=== PATIENT | female | born 1960 | race Caucasian/White ===

== ENCOUNTER 2024-07-16 13:34 | Emergency (ER) | payer BC ==
[~2024-07-16] VITALS: Ht 142.2 cm; Wt 95.5 kg
[2024-07-16 14:09] LABS: BASO # 0.03 K/mm3 (0.02-0.10); EOS # 0.18 K/mm3 (0.04-0.40); EOS % 2.2 % (1.0-5.0); HEMATOCRIT 45.2 % (37.0-47.0); HEMOGLOBIN 14.9 g/dL (12.5-16.0); LYMPH# 2.17 K/mm3 (1.50-4.00); MEAN CELL VOLUME 86 fl (78-100); MEAN CORPUSCULAR HEMOGLOBIN 29 pg (27-31); MEAN CORPUSCULAR HGB CONC 33 g/dL (33-37); MEAN PLATELET VOLUME 8.8 fl (7.4-10.4); MONO # 0.72 K/mm3 (0.20-0.80); NEU # 5.14 K/mm3 (1.40-6.50); PLATELET COUNT 221 K/mm3 (130-400); RED BLOOD COUNT 5.23 M/mm3 (4.10-5.30); RED CELL DISTRIBUTION WIDTH 14.1 % (11.5-14.5); WHITE BLOOD COUNT 8.3 K/mm3 (4.8-10.8)
[2024-07-16] MEDS ORDERED: LISINOPRIL10 MG PO (14:13)
[2024-07-16] MEDS ORDERED: MOUNJARO10 MG/0.5 SQ (14:13)
[2024-07-16] MEDS ORDERED: DULOXETINE20 MG PO (14:13)
[2024-07-16] MEDS ORDERED: ALENDRONATE SOD70 MG PO (14:14)
[2024-07-16] MEDS ORDERED: NORVASC 10MG10 MG PO (14:14)
[2024-07-16] MEDS ORDERED: PANTOPRAZOLE SO40 MG PO (14:14)
[2024-07-16] MEDS ORDERED: FUROSEMIDE20 MG PO (14:14)
[2024-07-16 14:16] LABS: ALBUMIN 4.4 g/dL (3.4-4.8); SODIUM 140 mmol/L (136-145)
[2024-07-16 14:17] LABS: CALCIUM 9.4 mg/dL (8.3-10.5)
[2024-07-16 14:18] LABS: GLUCOSE 96 mg/dL (65-105)
[2024-07-16 14:20] LABS: CARBON DIOXIDE 22 mmol/L (23-31); TOTAL BILIRUBIN 0.5 mg/dL (0.2-1.2)
[2024-07-16 14:24] LABS: AST-SGOT 19 U/L (5-34)
[2024-07-16 14:25] LABS: ALT/SGPT 16 U/L (0-55)
[2024-07-16 14:29] LABS: D-DIMER 0.89 mg/L FEU (0.15-0.50)
[2024-07-16 14:31] LABS: TROPONIN-I < 0.030 ng/mL (0.00-0.033)
[2024-07-16] MEDS ORDERED: Iohexol 350 - 100 ML VIAL IV ONE (14:40)
[2024-07-16] MEDS ORDERED: ELIQUIS5 MG PO (15:14)
[2024-07-16] MEDS ORDERED: Apixaban 5 MG TABLET PO ONE (15:15)
[2024-07-16] MEDS ORDERED: Meclizine 12.5 MG TAB PO ONE (15:15)
[2024-07-16] MEDS ORDERED: MECLIZINE PO (15:18)
[2024-07-16 15:22] VITALS: BP 129/78
== END 2024-07-16 15:47 | disposition home or self-care (01) ==
LOC: ED 13:34
PROVIDERS: Family Medicine
DX: R42 Dizziness and giddiness (principal); E86.0 Dehydration; I45.10 Unspecified right bundle-branch block; R79.89 Other specified abnormal findings of blood chemistry
CPT/HCPCS: J7120; Q9967

== ENCOUNTER → 2024-09-24 | Outpatient (CLI) | payer MEDICARE, BC ==
[~2024-09-24] VITALS: Ht 149.9 cm; Wt 95.5 kg
[~2024-09-24] MED LIST: ALENDRONATE SOD70 MG PO; BACTRIM DS TAB1 EACH PO; DIFLUCAN100 M1 PO; DOXYCYCLINE HY100 M5 PO; DULOXETINE20 MG PO; ELIQUIS5 MG PO; FISH OIL 1,0001 EAC1 PO; FUROSEMIDE20 MG PO; LISINOPRIL10 MG PO; MAGNESIUM400 MG PO; MECLIZINE PO; MINOXIDIL 2.5 PO; MOUNJARO10 MG/0.5 SQ; NATURE'S BLEND1 TA6 PO; NORVASC 10MG10 MG PO; PANTOPRAZOLE SO40 MG PO; TYLENOL ARTHRI650 M2 PO; VIT D3-VIT K21 EACH PO
[2024-09-24 18:20] VITALS: BP 153/91
== END ==
LOC: WOUND 12:11
DX: L24.A9 Irritant contact dermatitis due friction or contact with other specified body fluids (principal); T81.31XA Disruption of external operation (surgical) wound, not elsewhere classified, initial encounter
CPT/HCPCS: 18895; A6021

== ENCOUNTER → 2024-10-01 | Outpatient (CLI) | payer MEDICARE, BC ==
[~2024-10-01] VITALS: Ht 149.9 cm; Wt 95.5 kg
[2024-10-01 14:30] VITALS: BP 150/85
--- NOTE | 2024-10-01 17:46 | NUR ---
PT HERE FOR WOUND CARE TO [facility]X S/P PILONIDAL CYSTECTOMY INCISION DEHISCENCE. PT STATES NOTED INCREASED DRAINAGE AND PAIN AT WOUND SITE THE LAST COUPLE DAYS. INCREASED REDNESS AND RED "RING" AROUND OUTER EDGES OF WOUND. DRAINAGE IS YELLOW AND PURULENT. CULTURE DONE AND PT WAS STARTED ON ANTIBIOTIC AND ALSO ON A MED FOR YEAST. PLAN IS TO POSSIBLY START ON WOUND VAC NEXT WEEK. PT IS AGREEABLE AND WANTS TO HEAL WOUND QUICKLY POSSIBLE WITHOUT HAVING TO MISS A LOT OF WORK. GENTLE DEBRIDEMENT DONE BY Ramo LENZ APRN. CLEANED WOUND WITH VASHE PRIOR TO CULTURE. IODOSORB GEL, AQUACEL EXTRA AND MEPILEX SACRAL DRESSING APPLIED. PT TO CHANGE DRESSING ON FRIDAY AND RETURN TO WOUND CLINIC ON FRIDAY. SUPPLIES SENT HOME WITH PATIENT. PT TOLERATED DRESSING CHANGE WITHOUT ANY PAIN OR PROBLEM.
--- NOTE | 2024-10-04 10:07 | NUR ---
WOUND CULTURE PRELIM GIVEN TO THANG LENZ APRN.
--- NOTE | 2024-10-04 11:13 | NUR ---
THANG LENZ APRN ORDERED NEW ANTIBIOTIC BACTRIM DS 1 TAB BID X 10 DAYS SENT TO PREFERRED PHARMACY. PATIENT UPDATED ON ANTIBIOTIC CHANGE AT THIS TIME AND VERBALIZED UNDERSTANDING. WOUND CULTURE RESUTLS PLACED INTO CHART.
== END ==
LOC: LAB 13:56 → WOUND 13:56
DX: T81.31XA Disruption of external operation (surgical) wound, not elsewhere classified, initial encounter (principal); B96.1 Klebsiella pneumoniae [K. pneumoniae] as the cause of diseases classified elsewhere
CPT/HCPCS: A6261

== ENCOUNTER → 2024-10-05 | Outpatient (CLI) | payer MEDICARE, BC ==
[~2024-10-05] VITALS: Ht 149.9 cm; Wt 95.5 kg
[2024-10-05 17:03] VITALS: BP 146/87
== END ==
LOC: WOUND 15:57
DX: T81.31XA Disruption of external operation (surgical) wound, not elsewhere classified, initial encounter (principal); L24.A9 Irritant contact dermatitis due friction or contact with other specified body fluids
CPT/HCPCS: 18895; A6021

== ENCOUNTER → 2024-10-08 | Outpatient (CLI) | payer MEDICARE, BC ==
[~2024-10-08] VITALS: Ht 149.9 cm; Wt 95.5 kg
[2024-10-08 09:12] VITALS: BP 142/83
--- NOTE | 2024-10-08 10:43 | NUR ---
HERE FOR WOUND VAC DRESSING CHANGE TO [facility] AREA. WOUND VAC BATTERY YESTERDAY WITHOUT WARNING. SO WOUND VAC DRESSING WAS REMOVED, AND A LARGE SACRAL DRESSING WAS APPLIED UNTIL SHE COULD RETURN TODAY FOR A NEW WOUND VAC DRSG TO BE APPLIED. MINIMAL YELLOWISH DRAINAGE NOTED. WOUND BED IS BEEFY RED AND INNER EDGES ARE FILLING IN. MEASUREMENTS TAKEN AND ARE NOTED BY PROVIDER Ramo LENZ APRN IN HER NOTE. WOUND WAS CLEANSED WITH HIBICLENS AND STERILE WATER, RINSED WELL AND DRIED WITH 4X4'S. SKIN PREPPED ALL AROUND WOUND. NEW WOUND VAC DRESSING APPLIED AND LEAKS CORRECTED. PT DENIES ANY DISCOMFORT AT THIS TIME. SHE HAS THE 800 NUMBER TO CALL IF ANY FURTHER PROBLEMS WITH BATTERY. NEXT APPT SCHEDULED ON friday.
== END ==
LOC: WOUND 09:05
DX: T81.31XA Disruption of external operation (surgical) wound, not elsewhere classified, initial encounter (principal); L24.A9 Irritant contact dermatitis due friction or contact with other specified body fluids

== ENCOUNTER → 2024-10-12 | Outpatient (CLI) | payer MEDICARE, BC ==
[~2024-10-12] VITALS: Ht 149.9 cm; Wt 95.5 kg
[2024-10-12 07:38] VITALS: BP 145/82
--- NOTE | 2024-10-12 08:23 | NUR ---
PT HERE FOR WOUND VAC DRESSING CHANGE TO [facility]. DRESSING IS INTACT WITH SMALL AMT OF DRAINAGE NOTED IN CANISTER. AFTER REMOVING DRESSING WOUND APPEARS RED AND BEEFY. NO SLOUGH OR DRAINAGE IN WOUND BED. MEASUREMENTS: LENGTH 4.5CM, WIDTH 2CM AND DEPTH 1.2CM WITH ONLY UNDERMINING AT 1200 0.8CM. PT STATES SHE IS NOTICING LESS DISCOMFORT. CLEANED WOUND WITH VASHE. APPLIED WOUND VAC. SUCTION OBTAINED. PT WILL RETURN FRIDAY FOR DRSG CHANGE. PT WAS NOT SEEN BY PROVIDER TODAY.
== END ==
LOC: WOUND 07:30
DX: T81.31XA Disruption of external operation (surgical) wound, not elsewhere classified, initial encounter (principal); L24.A9 Irritant contact dermatitis due friction or contact with other specified body fluids

== ENCOUNTER → 2024-10-15 | Outpatient (CLI) | payer MEDICARE, BC ==
[~2024-10-15] VITALS: Ht 149.9 cm; Wt 95.5 kg
[2024-10-15 09:10] VITALS: BP 126/80
--- NOTE | 2024-10-15 09:39 | NUR ---
PT HERE FOR WOUND VAC DRESSING CHANGE TO [facility]. ONLY MINIMAL AMT OF DRAINAGE NOTED IN CANISTER. CLEANED WOUND WITH VASHE. WOUND LOOKS MORE FILLED IN TODAY. SKIN PINK. NO SLOUGH NOTED. UNDERMINING AT 1200 IS DOWN TO 1CM. PACKED COLLAGEN GENEVA INTO UNDERMINED AREA AND INTO WOUND BED BEFORE APPLYING WOUND VAC. SKIN PREPPED ENTIRE AREA PRIOR TO APPLYING THE WOUND VAC DRESSING. SUCTION OBTAINED. NO ALARMS. PT WILL RETURN ON FRIDAY AND WILL START CHANGING DRESSINGS ON AND FRIDAY FROM NOW ON - APPROVED BY Ramo LENZ APRN. PT STATES IS HAVING NO MORE PAIN.
== END ==
LOC: WOUND 09:03
DX: T81.31XA Disruption of external operation (surgical) wound, not elsewhere classified, initial encounter (principal); L24.A9 Irritant contact dermatitis due friction or contact with other specified body fluids
CPT/HCPCS: 18895; A6021

== ENCOUNTER → 2024-10-19 | Outpatient (CLI) | payer MEDICARE, BC ==
[~2024-10-19] VITALS: Ht 149.9 cm; Wt 95.5 kg
[~2024-10-19] MED LIST changes: +AMOXICILLIN AND1 TAB PO
[2024-10-19 13:23] VITALS: BP 113/77
--- NOTE | 2024-10-19 13:24 | NUR ---
PT HERE FOR WOUND CARE TO [facility] WOUND. PT HAS NOTICED AN ODOR. UPON REMOVING WOUND VAC, NOTED ERRYTHEMA AROUND OUTER EDGES OF WOUND. WOUND BED ITSELF APPEARED RED AND BEEFY - UNCHANGED. NOTIFIED PATSY MANUEL APRN, WHO CAME AND OBSERVED THE WOUND. CULTURE OF WOUND ORDERED AND DONE AT THIS TIME. WILL AWAIT CULTURE REPORT. CLEANSED WOUND WITH VASHE PRIOR TO CULTURING. PATTED DRY WITH 4X4'S. SKIN PREPPED AND PLACED COLLAGEN INSIDE WOUND THEN REAPPLIED WOUND VAC. PT DEANA WELL. DENIES ANY DISCOMFORT. WILL RETURN ON friday FOR NEXT DRESSING CHANGE. PICTURES AND MEASUREMENTS DONE TODAY. WOUND IS 4.0 CM LONG X 2.0CM WIDE X 1.7CM DEEP WITH TUNNELLING AT 1200 THAT IS 1CM DEEP.
== END ==
LOC: WOUND 13:06
DX: T81.31XA Disruption of external operation (surgical) wound, not elsewhere classified, initial encounter (principal); L24.A9 Irritant contact dermatitis due friction or contact with other specified body fluids

== ENCOUNTER → 2024-10-22 | Outpatient (CLI) | payer MEDICARE, BC ==
[~2024-10-22] VITALS: Ht 149.9 cm; Wt 95.5 kg
[2024-10-22 09:19] VITALS: BP 140/79
--- NOTE | 2024-10-22 09:44 | NUR ---
PT HERE FOR WOUND VAC DRESSING CHANGE TO [facility]. STATES SHE HAS STILL BEEN HAVING A LOT OF ITCHING UNDER THE DRESSING. NOTED REDNESS/IRRITATION AT THE VERY PROXIMAL EDGE OF DRAPE. REDNESS AROUND WOUND EDGES HAS IMPROVED. STILL HAS AN ODOR. PT REQUESTING SCRIPT FOR DIFLUCAN. DR DUNN NOTIFIED [facility] WOUND CLEANSED WITH VASHE AND PATTED DRY WITH 4X4. SKIN PREPPED AROUND WOUND EDGES. COLLAGEN GENEVA APPLIED TO WOUND BED PRIOR TO THE FOAM. WOUND VAC DRESSING APPLIED AND OBTAINED 125MM OF SUCTION. PT DEANA WELL. LEFT FACILITY AMBULATORY. WILL RETURN NEXT THURSDAY 10/26. WOUND CULTURE STILL IS NOT RESULTED. PRELIMINARY SHOWS NORMAL SKIN ENMA.
== END ==
LOC: WOUND 08:53
DX: T81.31XA Disruption of external operation (surgical) wound, not elsewhere classified, initial encounter (principal); L24.A9 Irritant contact dermatitis due friction or contact with other specified body fluids

== ENCOUNTER → 2024-10-26 | Outpatient (CLI) | payer MEDICARE, BC ==
[~2024-10-26] VITALS: Ht 149.9 cm; Wt 95.5 kg
[2024-10-26 09:08] VITALS: BP 143/83
--- NOTE | 2024-10-26 09:56 | NUR ---
PT HERE FOR WOUND VAC CHANGE TO CO[facility]YX AREA. OMAR WOUND IS PINK . PT STILL C/O ITCHING. SHE DID TAKE HER LAST DOSE OF DIFLUCAN TODAY. WOUND IS NOT MALODOROUS TODAY. SHE IS ALSO TAKING AUGMENTIN . WOUND WAS CLEANED WITH VASHE WASH AND PATTED DRY WITH 4X4. NO DEBRIDING DONE TODAY. Ramo LENZ [employer] IN TO SEE PT AND ASSISTED WITH VAC CHANGE. MEASUREMENTS AND PICS TAKEN TODAY. W 0.8CM X L 3.7CM X D 1.8CM WITH UNDERMINING OF 1.3CM AT 1200, AND 0.8 CM AT 3:00. SKIN PREP APPLIED JUDICIOUSLY AND WOUND VAC REAPPLIED. SEAL OBTAINED AND VAC IS AT 125 .
== END ==
LOC: WOUND 09:05
DX: T81.31XA Disruption of external operation (surgical) wound, not elsewhere classified, initial encounter (principal); L24.A9 Irritant contact dermatitis due friction or contact with other specified body fluids
CPT/HCPCS: 18895; A6021

== ENCOUNTER → 2024-10-29 | Outpatient (CLI) | payer MEDICARE, BC ==
[~2024-10-29] VITALS: Ht 149.9 cm; Wt 95.5 kg
[2024-10-29 15:30] VITALS: BP 146/79
--- NOTE | 2024-10-29 15:30 | NUR ---
Pt presents ambulatory with wound vac in place for wound care to coccyx area. Pt c/o itching and Jes BRAY to send in script for atarax. Pillows provided for pt's comfort to head and under knees while wound care done. Pt c/o more knee pain today while prone for procedure. Pt needing to get wound healed before looking into knee replacments. Current wound vac dressing removed and wound care performed - see Jes Peters's progress note for details and measurements. post wound vac dressing change seal obtained and wound vac at 125. Pt to return the and Friday the for next wound vac change.
== END ==
LOC: WOUND 15:20
DX: T81.31XA Disruption of external operation (surgical) wound, not elsewhere classified, initial encounter (principal); L24.A9 Irritant contact dermatitis due friction or contact with other specified body fluids; B37.2 Candidiasis of skin and nail
CPT/HCPCS: 18895; A6021

== ENCOUNTER → 2024-11-02 | Outpatient (CLI) | payer MEDICARE, BC ==
[~2024-11-02] VITALS: Ht 149.9 cm; Wt 95.5 kg
[2024-11-02 16:28] VITALS: BP 116/67
== END ==
LOC: WOUND 16:05
DX: T81.31XA Disruption of external operation (surgical) wound, not elsewhere classified, initial encounter (principal); T81.41XA Infection following a procedure, superficial incisional surgical site, initial encounter; B96.1 Klebsiella pneumoniae [K. pneumoniae] as the cause of diseases classified elsewhere; L24.A9 Irritant contact dermatitis due friction or contact with other specified body fluids
CPT/HCPCS: 18895; A6021

== ENCOUNTER → 2024-11-22 | Outpatient (CLI) | payer MEDICARE, BC ==
[~2024-11-22] VITALS: Ht 149.9 cm; Wt 95.5 kg
[~2024-11-22] MED LIST changes: +AMOXICILLIN AND1 TA2 PO; +MELATIN 3 MG-11 TAB; +METRONIDAZOLE500 M1 PO; +ZYRTEC ALLERGY10 MG
[2024-11-22 15:19] VITALS: BP 132/73
--- NOTE | 2024-11-22 15:25 | NUR ---
DRESSING REMOVED, SLIGTH DRIANAGE NOTED. SIGNIFICANT DECREASE IN ODOR NOTED COMPARED TO PRIOR DRESSING CHANGES. WOUND BED CLEANSED WITH VASHE SOAK, DRIED WITH 4X4, DESENEX APPLIED TO PERIWOUND WELL SKIN PREP. INCREASED DEPTH NOTED TO DISTAL PORTION OF WOUND. PINPOINT AREA, 0.2 DEPTH. COLLAGEN PACKED INTO WOUND BED. COVERED WITH MEPILEX BORDER FOAM. PATIENT REPORTS TO THIS RN THAT SHE HAS NOT UTILIZED WITH COLLAGEN WITH DRESSING CHANGES. THIS RN STRONGLY ENCOURAGED PATIENT TO UTILIZE COLLAGEN, PATIENT VERBALIZED UNDERSTANDING. PATIENT TO RETURN FRIDAY FOR DRESSING CHANGE AND EVALUATION.
== END | disposition home or self-care (01) ==
LOC: WOUND 15:02
DX: T81.31XA Disruption of external operation (surgical) wound, not elsewhere classified, initial encounter (principal); L24.A9 Irritant contact dermatitis due friction or contact with other specified body fluids

== ENCOUNTER → 2024-12-24 | Outpatient (CLI) | payer MEDICARE, BC ==
[~2024-12-24] VITALS: Ht 149.9 cm; Wt 95.5 kg
[~2024-12-24] MED LIST changes: +Denosumab 60 MG/ML SYRINGE SQ ONE; +MELOXICAM15 MG PO; +MOUNJARO5 MG/0.5 M SQ
[2024-12-24 14:15] VITALS: BP 149/85
== END ==
LOC: AMSURD 13:54
DX: M81.0 Age-related osteoporosis without current pathological fracture (principal)
CPT/HCPCS: J0897